=== PATIENT | female | born 1945 | race Caucasian/White ===

== ENCOUNTER → 2018-07-28 | Outpatient (CLI) | payer OTHER ==
[~2018-07-28] MED LIST: ASPIRIN EC81 M1 PO; CRESTOR10 MG PO; EFFIENT10 MG PO; FISH OIL 1,4001 EACH PO; IBUPROFEN 800800 M1 PO; NITROGLYCERIN0.4 MG SL; PROAIR HFA8.5 GM IH; VIVELLE-DOT1 EAC1 TD
== END ==
LOC: RAD 08:48
DX: I51.7 Cardiomegaly (principal); R06.00 Dyspnea, unspecified; E78.5 Hyperlipidemia, unspecified